=== PATIENT | male | born 1945 | race Caucasian/White ===

== ENCOUNTER 2017-11-05 11:49 | Inpatient (IN) | payer MEDICARE, OTHER ==
[~2017-11-05] VITALS: Ht 185.4 cm; Wt 111.3 kg
[2017-11-05] MEDS ORDERED: VANCOMYCIN 1GM/NS 250 ML 250 ML IV ONE (12:30)
[2017-11-05] MEDS ORDERED: PIPER-TAZ 3.375 GM 50 ML IV ONE (12:30)
[2017-11-05 13:06] LABS: BASOPHILS % 0.2 % (0.0-1.0); EOSINOPHILS # (AUTO) 0.1 (0.0-0.4); EOSINOPHILS % 0.9 % (0.0-6.0); HEMOGLOBIN 13.7 g/dL (14.0-18.0); LYMPHOCYTES # (AUTO) 0.8 (1.0-3.2); MEAN CORPUSCULAR HEMOGLOBIN 33.4 pg (28-32); MEAN CORPUSCULAR HGB CONC 34.3 g/dL (31-35); MEAN CORPUSCULAR VOLUME 97.6 fL (81-99); MONOCYTES % 7.2 % (4.4-11.3); NEUTROPHILS # (AUTO) 11.7 (2.1-6.9); NEUTROPHILS % 85.1 % (38.7-80.0); PLATELET COUNT 175 x10e3/uL (140-360); RED CELL DISTRIBUTION WIDTH 12.5 % (11.7-14.4)
[2017-11-05] MEDS ORDERED: AVODART0.5 MG PO (13:23)
[2017-11-05] MEDS ORDERED: CRESTOR40 MG PO (13:23)
[2017-11-05] MEDS ORDERED: NIACIN1000 MG PO (13:23)
[2017-11-05] MEDS ORDERED: TAMSULOSIN HCL0.4 MG PO (13:23)
[2017-11-05 13:28] LABS: ALANINE AMINOTRANSFERASE 279 IU/L (0-55); ALBUMIN 3.2 g/dL (3.5-5.0); ALBUMIN/GLOBULIN RATIO 0.8 (0.8-2.0); ALKALINE PHOSPHATASE 92 IU/L (40-150); ANION GAP 14.5 mmol/L (8-16); BLOOD UREA NITROGEN 19 mg/dL (7-26); BUN/CREATININE RATIO 20 (6-25); CALCIUM 9.2 mg/dL (8.4-10.2); CARBON DIOXIDE 26 mmol/L (22-29); CHLORIDE 101 mmol/L (98-107); CREATININE, SERUM 0.97 mg/dL (0.72-1.25); EST GLOMERULAR FILTRATION RATE > 60 ML/MIN (60-); GLUCOSE 109 mg/dL (74-118); POTASSIUM 3.5 mmol/L (3.5-5.1); SODIUM 138 mmol/L (136-145)
[2017-11-05] MEDS ORDERED: MULTI-VITAMIN1 EACH PO (13:30)
[2017-11-05] MEDS ORDERED: AZITHROMYCIN250 MG PO (13:30)
[2017-11-05] MEDS ORDERED: FISH OIL 1,0001 EAC3 (13:30)
[2017-11-05] MEDS ORDERED: [UNRECOGNIZED DRUG - OTHER] PO (13:30)
[2017-11-05] MEDS ORDERED: ASPIR 8181 MG PO (13:30)
[2017-11-05] MEDS ORDERED: BENZONATATE100 MG PO (13:30)
[2017-11-05] MEDS ORDERED: CIALIS20 MG PO (13:30)
[2017-11-05] MEDS ORDERED: UBIQUINOL100 MG PO (13:30)
[2017-11-05] MEDS ORDERED: SODIUM CHLORIDE FLUSH 10 ML SYR INJ PRN (13:45)
[2017-11-05] MEDS ORDERED: ONDANSETRON HCL INJ 2 MG/ML VIAL IV PRN (13:45)
[2017-11-05] MEDS ORDERED: ACETAMINOPHEN 325 MG TAB PO PRN (13:45)
[2017-11-05] MEDS ORDERED: VANCOMYCIN 1GM/NS 250 ML 500 ML IV SCH (17:00)
[2017-11-05] MEDS: FAMOTIDINE 20 MG/2 ML VIAL IV SCH (17:20)
[2017-11-05] MEDS: CEFEPIME HCL 2 GM VIAL IV SCH (17:20)
--- NOTE | 2017-11-05 18:45 | Consultation ---
DATE OF CONSULTATION: November 05, 2017 REASON FOR CONSULTATION: Sepsis, cellulitis of the left leg. HISTORY OF PRESENT ILLNESS: This patient is a very pleasant 72-year-old male with history of hypertension. The patient comes in with redness and swelling and fever and chills. The patient apparently Saturday he was doing his lawn in the backyard and then he spent the evening and did not feel too well. He went to have dinner. He had chills, fever, felt worse the day after. The patient's symptoms did progress. He still had redness and swelling of his left leg. The patient has had history of venous stasis dermatitis, and he is well known to Dr. Woodward. He went to see Dr. Woodward today and there was redness and swelling and bullous lesion in his leg. The patient was sent to the emergency room where I was contacted. The patient is currently lying in bed in the emergency room. PAST MEDICAL HISTORY: Hypertension. PAST SURGICAL HISTORY: Denies. ALLERGIES: NKA. SOCIAL HISTORY: He denies smoking, drug abuse or alcohol abuse. FAMILY HISTORY: Hypertension. REVIEW OF SYSTEMS: GENERAL: He is feeling fair at the present time. He had the fever and chills took place yesterday, and he still has pain, redness and swelling of his left leg. HEENT: Negative. PULMONARY: Negative. CARDIAC: Negative. negative. GI: Negative. SKIN: There is no rash anywhere else. LABORATORY DATA: White count is 13.73, hemoglobin 3.7, sodium 138, potassium 3.5, creatinine 0.97. AST 193, ALT 279. PHYSICAL EXAMINATION: VITAL SIGNS: He weighs 245 pounds. His BMI is 32.3. HEENT: Normocephalic, not icteric. NECK: Supple. CHEST: Clear bilaterally. HEART: S1 and S2. No S3, S4 or murmur. ABDOMEN: Soft. Bowel sounds present. No tenderness. EXTREMITIES: Redness and swelling affecting his leg. The redness and swelling affecting from toes all the way to his knee. There is also erythema spreading up on his ____ side. IMPRESSION: I think the patient has sepsis on admission and cellulitis of the left lower extremity with bullous formation. Will continue with vancomycin at 1.5 grams q.12 hours. Obtain a trough with the 4th dose. Will add cefepime. Recheck CBC. Recheck chem panel. Elevated liver enzymes. Will recheck. It could be from sepsis, but other possibilities need to be ruled out. Will get ultrasound of the abdomen. Will follow with you. Thank you for asking me to see this patient. Job#: [id number]
[2017-11-05 20:20] VITALS: BP 145/69
[2017-11-05 21:32] VITALS: BP 145/69
[2017-11-06] VITALS (8 sets, daily range): BP systolic 115–155; BP diastolic 59–71
[2017-11-06] MEDS ORDERED: SODIUM CHLORIDE 0.9% 250ML 250 ML ONE (01:24)
[2017-11-06] MEDS: VANCOMYCIN 1GM/NS 250 ML 500 ML IV SCH ×2 (01:43→13:45)
[2017-11-06 04:39] LABS: BASOPHILS % 0.2 % (0.0-1.0); EOSINOPHILS # (AUTO) 0.2 (0.0-0.4); EOSINOPHILS % 1.2 % (0.0-6.0); HEMATOCRIT 36.6 % (38.2-49.6); HEMOGLOBIN 12.5 g/dL (14.0-18.0); LYMPHOCYTES % 7.7 % (18.0-39.1); MEAN CORPUSCULAR HGB CONC 34.2 g/dL (31-35); MEAN CORPUSCULAR VOLUME 96.6 fL (81-99); MONOCYTES % 8.3 % (4.4-11.3); NEUTROPHILS # (AUTO) 10.2 (2.1-6.9); NEUTROPHILS % 81.8 % (38.7-80.0); PLATELET COUNT 154 x10e3/uL (140-360); RED BLOOD COUNT 3.79 x10e6/uL (4.3-5.7); RED CELL DISTRIBUTION WIDTH 12.7 % (11.7-14.4)
[2017-11-06 04:54] LABS: ANION GAP 13.4 mmol/L (8-16); BLOOD UREA NITROGEN 17 mg/dL (7-26); BUN/CREATININE RATIO 18 (6-25); CALCIUM 8.7 mg/dL (8.4-10.2); CARBON DIOXIDE 23 mmol/L (22-29); CHLORIDE 104 mmol/L (98-107); CREATININE, SERUM 0.95 mg/dL (0.72-1.25); EST GLOMERULAR FILTRATION RATE > 60 ML/MIN (60-); GLUCOSE 125 mg/dL (74-118); POTASSIUM 3.4 mmol/L (3.5-5.1); SODIUM 137 mmol/L (136-145)
[2017-11-06] MEDS: CEFEPIME HCL 2 GM VIAL IV SCH ×2 (05:35→16:35)
[2017-11-06] MEDS: FAMOTIDINE 20 MG/2 ML VIAL IV SCH ×2 (08:20→16:35)
--- NOTE | 2017-11-06 11:23 | Diagnostic Imaging Report ---
EXAM: US ABDOMEN COMPLETE DATE: 11/06/2017 12:00 AM Time stamp on exam: 0951 INDICATION: Hepatitis C COMPARISON: None TECHNIQUE: Transverse and longitudinal lemus scale and color doppler sonographic images of the upper abdomen were obtained. FINDINGS: LIVER 19.4 cm in the right midclavicular line. Increased echogenicity, normal contour, no masses. SPLEEN 12.5 cm in maximum diameter. Normal echogenicity, no masses. GALLBLADDER No stones, sludge, wall-thickening or pericholecystic fluid. Negative sonographic Kincaid's sign. BILE DUCTS No intra nor extra-hepatic biliary dilation. Common bile duct measures 0.2 cm PANCREAS: Visualized portions are normal. RIGHT KIDNEY: 11.3 cm Echogenicity: Normal Collecting System: No hydronephrosis Stones: None Cyst/Mass: None LEFT KIDNEY: 12.5 cm Echogenicity: Normal Collecting System: No hydronephrosis Stones: None Cyst/Mass: 1.5 cm anechoic cyst projecting from the upper pole. VESSELS: Aorta: Visualized portions are within normal size limits Inferior Vena Cava: Visualized portions are normal Main Portal Vein: 1.1 cm, normal size with hepatopetal flow. FREE FLUID: None IMPRESSION: Hepatomegaly with hepatic steatosis. Signed by: Dr. Farrukh Alonso M.D. on 11/06/2017 11:20 AM
[2017-11-07] VITALS (8 sets, daily range): BP systolic 126–154; BP diastolic 65–81
[2017-11-07] MEDS: VANCOMYCIN 1GM/NS 250 ML 500 ML IV SCH ×2 (01:50→14:15)
[2017-11-07] MEDS: CEFEPIME HCL 2 GM VIAL IV SCH ×2 (05:25→17:00)
[2017-11-07] MEDS: FAMOTIDINE 20 MG/2 ML VIAL IV SCH ×2 (09:09→17:00)
--- NOTE | 2017-11-07 12:36 | Progress Note ---
DATE: November 07, 2017 CARDIOLOGY PROGRESS NOTE SUBJECTIVE: Patient denies chest pain or shortness of breath. OBJECTIVE VITALS: Temperature 98 degrees, pulse 67, respiratory rate 18, blood pressure 146/65, and oxygen saturation 97% on room air. GENERAL: Awake and alert, in no acute distress. LUNGS: Clear to auscultation bilaterally. No wheezes or crackles. CARDIOVASCULAR: Normal rate. Regular rhythm. No murmur. Normal S1 and S2. ABDOMEN: Soft and nontender. EXTREMITIES: Skin changes consistent with chronic venous stasis. Left lower extremity with marked erythema and swelling as well as fluid filled bullae on the left medial surface. CARDIAC MEDICATIONS: None. LABS: None today. IMPRESSION 1. Cellulitis of the left lower extremity. 2. History of chronic venous stasis, status post ablation. 3. Hypertension. RECOMMENDATIONS: IV antibiotics per infectious disease. Obtain bilateral lower extremity arterial Dopplers to evaluate for peripheral arterial disease. Thank you for this consult. We will continue to follow. Job#: [id number] VAS
[2017-11-08] VITALS (9 sets, daily range): BP systolic 140–165; BP diastolic 67–86
[2017-11-08] MEDS: VANCOMYCIN 1GM/NS 250 ML 500 ML IV SCH ×2 (01:24→14:07)
[2017-11-08] MEDS: CEFEPIME HCL 2 GM VIAL IV SCH ×2 (05:21→16:13)
[2017-11-08] MEDS: FAMOTIDINE 20 MG/2 ML VIAL IV SCH ×2 (08:25→16:13)
[2017-11-08] MEDS ORDERED: BENZONATATE 100 MG CAP PO PRN (10:15)
--- NOTE | 2017-11-08 15:28 | Progress Note ---
DATE: November 08, 2017 CARDIOLOGY PROGRESS NOTE SUBJECTIVE: Patient denies chest pain or shortness of breath. OBJECTIVE VITALS: Temperature 97 degrees, pulse 56, respiratory rate 20, blood pressure 165/81. Oxygen saturation is 98% on room air. GENERAL: Awake and alert, in no acute distress. LUNGS: Clear to auscultation bilaterally. No wheezes or crackles. CARDIOVASCULAR: Normal rate. Regular rhythm. No murmur. Normal S1 and S2. ABDOMEN: Soft and nontender. EXTREMITIES: Skin changes consistent with chronic venous stasis. Left lower extremity with marked erythema and swelling as well as fluid-filled bullae on the left medial surface. CARDIAC MEDICATIONS 1. Fish oil 1,000 mg p.o. daily. 2. Aspirin 81 mg p.o. daily. LABS: None today. BILATERAL LOWER EXTREMITY ARTERIAL DOPPLER: Monophasic waveforms in the left lower extremity suggestive of hemodynamically significant aortoiliac disease. The proximal left posterior tibial artery appears to be occluded. IMPRESSION 1. Cellulitis of the left lower extremity. 2. History of chronic venous stasis, status post ablation. 3. Peripheral arterial disease suggested by noninvasive Doppler evaluation. 4. Hypertension. RECOMMENDATIONS: Continue current cardiac medications. Resume rosuvastatin. Add nifedipine. Monitor lower extremity cellulitis. If this does not improve through the weekend, plan for evaluation with peripheral angiogram versus CTA of the abdomen and pelvis with lower extremity runoff. Thank you for this consult. We will continue to follow. Job#: [id number]
[2017-11-08] MEDS: MELATONIN 5 MG TABLET PO SCH (21:12)
[2017-11-08] MEDS: ATORVASTATIN 40 MG TAB PO SCH (21:12)
[2017-11-09] VITALS (7 sets, daily range): BP systolic 136–158; BP diastolic 68–87
[2017-11-09] MEDS: VANCOMYCIN 1GM/NS 250 ML 250 ML IV SCH ×2 (02:11→14:45)
[2017-11-09] MEDS: CEFEPIME HCL 2 GM VIAL IV SCH ×2 (05:17→17:31)
[2017-11-09] MEDS: MULTIVITAMINS/MINERALS TAB PO SCH (08:04)
[2017-11-09] MEDS: FAMOTIDINE 20 MG/2 ML VIAL IV SCH ×2 (08:04→17:31)
[2017-11-09] MEDS: ASPIRIN 81 MG CHEW TAB PO SCH (08:04)
[2017-11-09] MEDS: NIFEDIPINE CR 30 MG TAB PO SCH (08:04)
[2017-11-09] MEDS: OMEGA 3 POLYUNSAT FATTY ACIDS 1000 MG SOFTGEL PO SCH (08:04)
[2017-11-09] MEDS: DUTASTERIDE 0.5 MG CAP PO SCH (08:04)
[2017-11-09] MEDS: TAMSULOSIN HCL 0.4 MG CAP PO SCH (08:04)
--- NOTE | 2017-11-09 10:04 | Progress Note ---
DATE: November 09, 2017 CARDIOLOGY PROGRESS NOTE Mr. Luciano's leg inflammation and swelling has improved considerably. He denies any pain. PHYSICAL EXAMINATION VITALS: Afebrile, heart rate 105, blood pressure is 108/70. CARDIOVASCULAR: Regular rhythm. No murmurs or gallops. LUNGS: Clear to auscultation bilaterally. EXTREMITIES: Severe bullous erythema and swelling of the left lower extremity. MEDICATIONS: Reviewed. ASSESSMENT: Cellulitis of the left lower extremity with severe venous insufficiency. Arterial duplex study was reviewed and reveals monophasic waveforms in the entire left lower extremity. RECOMMENDATIONS: Leg elevation, compression and intravenous antibiotics. Local wound care. CT scan of the abdomen and pelvis with runoff to bilateral lower extremities will be performed to evaluate for any peripheral arterial disease given abnormal arterial duplex. Job#: [id number] FADIA
[2017-11-09 14:08] LABS: BASOPHILS # (AUTO) 0.1 (0.0-0.1); BASOPHILS % 0.5 % (0.0-1.0); EOSINOPHILS # (AUTO) 0.2 (0.0-0.4); EOSINOPHILS % 1.9 % (0.0-6.0); HEMATOCRIT 38.4 % (38.2-49.6); HEMOGLOBIN 12.7 g/dL (14.0-18.0); LYMPHOCYTES # (AUTO) 1.4 (1.0-3.2); LYMPHOCYTES % 13.6 % (18.0-39.1); MEAN CORPUSCULAR HEMOGLOBIN 32.9 pg (28-32); MEAN CORPUSCULAR HGB CONC 33.1 g/dL (31-35); MEAN CORPUSCULAR VOLUME 99.5 fL (81-99); MONOCYTES # (AUTO) 0.7 (0.2-0.8); MONOCYTES % 6.7 % (4.4-11.3); NEUTROPHILS # (AUTO) 8.1 (2.1-6.9); NEUTROPHILS % 76.4 % (38.7-80.0); PLATELET COUNT 217 x10e3/uL (140-360); RED BLOOD COUNT 3.86 x10e6/uL (4.3-5.7); RED CELL DISTRIBUTION WIDTH 12.4 % (11.7-14.4)
[2017-11-09 14:29] LABS: ALANINE AMINOTRANSFERASE 153 IU/L (0-55); ALBUMIN 2.5 g/dL (3.5-5.0); ALBUMIN/GLOBULIN RATIO 0.6 (0.8-2.0); ALKALINE PHOSPHATASE 90 IU/L (40-150); ANION GAP 11.1 mmol/L (8-16); BLOOD UREA NITROGEN 16 mg/dL (7-26); BUN/CREATININE RATIO 16 (6-25); CALCIUM 8.9 mg/dL (8.4-10.2); CARBON DIOXIDE 28 mmol/L (22-29); CHLORIDE 106 mmol/L (98-107); CREATININE, SERUM 0.98 mg/dL (0.72-1.25); EST GLOMERULAR FILTRATION RATE > 60 ML/MIN (60-); GLUCOSE 102 mg/dL (74-118); POTASSIUM 4.1 mmol/L (3.5-5.1); SODIUM 141 mmol/L (136-145)
[2017-11-09] MEDS ORDERED: SODIUM CHLORIDE 0.9% 100 ML 100 ML ONE (16:21)
[2017-11-09] MEDS ORDERED: IOPAMIDOL 370 MG/ML 200 ML INFUS..BTL INJ ONE (16:21)
[2017-11-09] MEDS: MELATONIN 5 MG TABLET PO SCH (20:29)
[2017-11-09] MEDS: ATORVASTATIN 40 MG TAB PO SCH (20:29)
[2017-11-10] VITALS (8 sets, daily range): BP systolic 115–149; BP diastolic 58–85
[2017-11-10] MEDS: VANCOMYCIN 1GM/NS 250 ML 250 ML IV SCH (03:53)
[2017-11-10 04:35] LABS: BASOPHILS % 0.3 % (0.0-1.0); EOSINOPHILS # (AUTO) 0.2 (0.0-0.4); EOSINOPHILS % 1.7 % (0.0-6.0); HEMOGLOBIN 12.3 g/dL (14.0-18.0); LYMPHOCYTES # (AUTO) 1.5 (1.0-3.2); MEAN CORPUSCULAR HEMOGLOBIN 32.4 pg (28-32); MEAN CORPUSCULAR HGB CONC 33.2 g/dL (31-35); MEAN CORPUSCULAR VOLUME 97.4 fL (81-99); MONOCYTES # (AUTO) 0.8 (0.2-0.8); MONOCYTES % 6.9 % (4.4-11.3); NEUTROPHILS # (AUTO) 8.6 (2.1-6.9); PLATELET COUNT 219 x10e3/uL (140-360); RED CELL DISTRIBUTION WIDTH 12.3 % (11.7-14.4)
[2017-11-10 04:57] LABS: ALANINE AMINOTRANSFERASE 127 IU/L (0-55); ALBUMIN 2.4 g/dL (3.5-5.0); ALBUMIN/GLOBULIN RATIO 0.6 (0.8-2.0); ALKALINE PHOSPHATASE 82 IU/L (40-150); ANION GAP 12.8 mmol/L (8-16); BLOOD UREA NITROGEN 15 mg/dL (7-26); BUN/CREATININE RATIO 18 (6-25); CALCIUM 8.5 mg/dL (8.4-10.2); CARBON DIOXIDE 24 mmol/L (22-29); CHLORIDE 108 mmol/L (98-107); CREATININE, SERUM 0.84 mg/dL (0.72-1.25); EST GLOMERULAR FILTRATION RATE > 60 ML/MIN (60-); GLUCOSE 113 mg/dL (74-118); POTASSIUM 3.8 mmol/L (3.5-5.1); SODIUM 141 mmol/L (136-145)
[2017-11-10] MEDS: CEFEPIME HCL 2 GM VIAL IV SCH ×2 (05:19→16:45)
[2017-11-10] MEDS: FAMOTIDINE 20 MG/2 ML VIAL IV SCH ×2 (08:09→16:45)
[2017-11-10] MEDS: DUTASTERIDE 0.5 MG CAP PO SCH (08:10)
[2017-11-10] MEDS: ASPIRIN 81 MG CHEW TAB PO SCH (08:10)
[2017-11-10] MEDS: MULTIVITAMINS/MINERALS TAB PO SCH (08:10)
[2017-11-10] MEDS: NIFEDIPINE CR 30 MG TAB PO SCH (08:10)
[2017-11-10] MEDS: TAMSULOSIN HCL 0.4 MG CAP PO SCH (08:10)
[2017-11-10] MEDS: OMEGA 3 POLYUNSAT FATTY ACIDS 1000 MG SOFTGEL PO SCH (08:10)
--- NOTE | 2017-11-10 10:21 | Progress Note ---
DATE: CARDIOLOGY PROGRESS NOTE SUBJECTIVE: Mr. Luciano leg feels much better. He denies any fever or chills. PHYSICAL EXAMINATION: VITAL SIGNS: Afebrile. Heart rate 64. Blood pressure 145/85. O2 sat is 99%. CARDIOVASCULAR: Regular rhythm. No murmurs or gallops. LUNGS: Clear to auscultation bilaterally. MEDICATIONS: Reviewed. LABS: WBC count is 11,000, hemoglobin is 12.3. Kidney function is normal. CT scan of the abdomen and pelvis with runoff report is pending. Blood cultures are negative. ASSESSMENT: Cellulitis of the left lower extremity with severe venous insufficiency. RECOMMENDATIONS: Compression will be applied today. Local wound care to continue. I will await interpretation of the arterial duplex before making more recommendations and evaluation of peripheral arterial disease. Job#: [id number]
[2017-11-10] MEDS: VANCOMYCIN HCL 1.25 GM in SODIUM CHLORIDE 0.9% 250ML 300 ML IV SCH (12:14)
[2017-11-10] MEDS: ATORVASTATIN 40 MG TAB PO SCH (20:07)
[2017-11-10] MEDS: MELATONIN 5 MG TABLET PO SCH (20:07)
[2017-11-11] VITALS (7 sets, daily range): BP systolic 117–170; BP diastolic 60–79
[2017-11-11] MEDS: VANCOMYCIN HCL 1.25 GM in SODIUM CHLORIDE 0.9% 250ML 300 ML IV SCH ×2 (00:12→12:00)
[2017-11-11 04:32] LABS: BASOPHILS # (AUTO) 0.1 (0.0-0.1); BASOPHILS % 0.5 % (0.0-1.0); EOSINOPHILS # (AUTO) 0.3 (0.0-0.4); EOSINOPHILS % 1.9 % (0.0-6.0); HEMOGLOBIN 13.4 g/dL (14.0-18.0); LYMPHOCYTES # (AUTO) 1.6 (1.0-3.2); LYMPHOCYTES % 12.3 % (18.0-39.1); MEAN CORPUSCULAR HEMOGLOBIN 32.6 pg (28-32); MEAN CORPUSCULAR HGB CONC 33.5 g/dL (31-35); MEAN CORPUSCULAR VOLUME 97.3 fL (81-99); MONOCYTES # (AUTO) 0.9 (0.2-0.8); MONOCYTES % 6.6 % (4.4-11.3); NEUTROPHILS # (AUTO) 10.2 (2.1-6.9); NEUTROPHILS % 77.6 % (38.7-80.0); PLATELET COUNT 262 x10e3/uL (140-360); RED BLOOD COUNT 4.11 x10e6/uL (4.3-5.7)
[2017-11-11 04:52] LABS: ALANINE AMINOTRANSFERASE 115 IU/L (0-55); ALBUMIN 2.5 g/dL (3.5-5.0); ALBUMIN/GLOBULIN RATIO 0.6 (0.8-2.0); ALKALINE PHOSPHATASE 84 IU/L (40-150); ANION GAP 12.2 mmol/L (8-16); BLOOD UREA NITROGEN 15 mg/dL (7-26); BUN/CREATININE RATIO 18 (6-25); CALCIUM 8.8 mg/dL (8.4-10.2); CARBON DIOXIDE 24 mmol/L (22-29); CHLORIDE 107 mmol/L (98-107); CREATININE, SERUM 0.83 mg/dL (0.72-1.25); EST GLOMERULAR FILTRATION RATE > 60 ML/MIN (60-); GLUCOSE 113 mg/dL (74-118); POTASSIUM 4.2 mmol/L (3.5-5.1); SODIUM 139 mmol/L (136-145)
[2017-11-11] MEDS: CEFEPIME HCL 2 GM VIAL IV SCH ×2 (05:05→16:57)
--- NOTE | 2017-11-11 08:23 | Diagnostic Imaging Report ---
EXAMINATION: CT angiography of the abdomen, pelvis, and lower extremities. TECHNIQUE: Spiral CT images of the abdomen and pelvis and lower extremities were performed from the lung bases to the lesser trochanters after the intravenous administration of 100 cc of Isovue-370. Coronal and sagittal reformatted images were obtained. COMPARISON: None. CLINICAL HISTORY:Bilateral lower extremity cellulitis, concern for left iliac stenosis DISCUSSION: Vasculature: The abdominal aorta is nonaneurysmal. The celiac axis, superior mesenteric artery, single bilateral renal arteries, and inferior mesenteric artery are all widely patent. Iliac inflow: The bilateral common and external iliac arteries, as well as the internal iliac arteries and central visceral branches are all widely patent with mild atherosclerotic disease. No significant stenosis, dissection, or aneurysmal dilatation. Right lower extreme: Femoral-popliteal segment: The common femoral artery is widely patent. The femoral bifurcation is patent. The superficial femoral artery as well as the profunda femoris artery and proximal muscular branches are widely patent. Runoff: The below-knee popliteal artery and runoff vessels are poorly opacified. There is substantial calcified atherosclerotic plaque along what is felt to be the peroneal artery. Left lower extremity: Femoral-popliteal segment: The common femoral artery and femoral bifurcation are widely patent. The superficial femoral artery is widely patent as is the profundus femoris artery and muscular branches. The above and below-knee segments of the popliteal artery are widely patent. Runoff: The anterior tibial artery, peroneal artery, and posterior tibial arteries are widely patent with minimal calcified atherosclerotic plaque. The dorsalis is artery is visualized as a continuation of the anterior tibial artery. The lateral plantar artery is identified as the continuation of the posterior tibial artery. Variant runoff anatomy with trifurcation of the below-knee popliteal artery. ABDOMEN/PELVIS: LOWER THORAX:Unremarkable. HEPATOBILIARY: 1 cm cyst in segment 8. Otherwise no focal hepatic lesion or intrahepatic biliary ductal dilatation. Gallbladder is unremarkable. SPLEEN: Heterogeneity of attenuation reflects arterial phase of scan. PANCREAS: No focal masses or ductal dilatation. ADRENALS: 2.3 cm right adrenal nodule, average internal attenuation 42 Hounsfield units. No left adrenal nodule. KIDNEYS/URETERS: 1.2 cm exophytic cyst projecting from the upper pole of the left kidney. Bilateral nonobstructing renal calculi measuring 5 mm on the left and 4 millimeters on the right. PELVIC ORGANS/BLADDER: 2.7 cm diverticulum projecting from the right side of the urinary bladder. 4.4 cm diverticulum projecting from the right bladder trigone with a 8.7 mm calculus in its dependent portion. The prostate is enlarged with mass effect upon the bladder base and contains multiple coarse calcifications. PERITONEUM/RETROPERITONEUM: No ascites or pneumoperitoneum. LYMPH NODES: 2.2 cm left inguinal lymph node. No pelvic sidewall, retroperitoneal, or mesenteric lymphadenopathy. Mildly enlarged left external iliac lymph nodes . VESSELS: As above. GI TRACT: The large bowel shows no gross distention or wall thickening. Innumerable sigmoid diverticula without inflammatory change or wall thickening. Diverticula of lesser concentration elsewhere along the large bowel. Normal appendix. Small sliding hiatal hernia. No small bowel dilatation to suggest obstruction. BONES AND SOFT TISSUE: No osseous destructive lesions. Mild multilevel degenerative disc changes of the lumbar spine. Diffuse skin thickening and subcutaneous edema of the left lower extremity to a greater extent involving the foot and calf than the upper leg. No loculated fluid collection. IMPRESSION: Mild atherosclerotic vascular disease without abdominal aortic aneurysm or visceral branch vessel stenosis. No significant iliac inflow stenosis. Specifically, no left common or external iliac arterial stenosis is identified per clinical query. No significant femoral-popliteal stenosis. Three-vessel runoff to the left foot with mild atherosclerotic disease. Nonvisualization of the right below knee popliteal artery and runoff vessels is of uncertain significance and may relate to technical factors. Correlation with recently performed arterial Doppler is suggested. Left lower extremity diffuse cellulitis without drainable fluid collection. Reactive left inguinal and mild iliac chain lymphadenopathy. Right adrenal nodule is indeterminate and should be definitively characterized by CT or MRI of the abdomen (adrenal mass protocol). Bilateral nonobstructing renal calculi. Prostatomegaly with mass effect upon the bladder base, and associated right-sided bladder diverticula, one of which contains a calculus. Large bowel diverticulosis without evidence of diverticulitis. Signed by: Dr. Farrukh Alonso M.D. on 11/11/2017 8:20 AM
[2017-11-11] MEDS: NIFEDIPINE CR 30 MG TAB PO SCH (09:00)
[2017-11-11] MEDS: DUTASTERIDE 0.5 MG CAP PO SCH (09:00)
[2017-11-11] MEDS: OMEGA 3 POLYUNSAT FATTY ACIDS 1000 MG SOFTGEL PO SCH (09:00)
[2017-11-11] MEDS: TAMSULOSIN HCL 0.4 MG CAP PO SCH (09:00)
[2017-11-11] MEDS: ASPIRIN 81 MG CHEW TAB PO SCH (09:00)
[2017-11-11] MEDS: FAMOTIDINE 20 MG/2 ML VIAL IV SCH ×2 (09:00→16:57)
[2017-11-11] MEDS: MULTIVITAMINS/MINERALS TAB PO SCH (09:29)
[2017-11-11 17:17] LABS: INR 1.14; PROTHROMBIN TIME 13.7 seconds (11.9-14.5)
[2017-11-11] MEDS: MELATONIN 5 MG TABLET PO SCH (20:23)
[2017-11-11] MEDS: ATORVASTATIN 40 MG TAB PO SCH (20:23)
[2017-11-12] VITALS: BP 113/61
--- NOTE | 2017-11-12 00:32 | Progress Note ---
DATE: November 11, 2017 CARDIOLOGY PROGRESS NOTE SUBJECTIVE: Patient denies chest pain or shortness of breath. OBJECTIVE: VITAL SIGNS: Temperature 97.6 degrees, pulse 80, respiratory rate 20, blood pressure 170/78, oxygen saturation 98% on room air. GENERAL: Awake and alert, in no acute distress. LUNGS: Clear to auscultation bilaterally. No wheezes or crackles. CARDIOVASCULAR: Normal rate, regular rhythm. No murmur. Normal S1 and S2. ABDOMEN: Soft, nontender. EXTREMITIES: Skin changes consistent with chronic venous stasis. Left lower extremity with marked erythema and swelling as well as fluid-filled bullae on the medial surface with dressing in place. CARDIAC MEDICATIONS: 1. Atorvastatin 80 mg p.o. nightly. 2. Nifedipine 30 mg p.o. daily. 3. Fish oil 1000 mg p.o. daily. 4. Aspirin 81 mg p.o. daily. LABS: WBC 13.11, hemoglobin is 13.4, hematocrit 40, platelets 262,000. Sodium 139, potassium 4.2, chloride 107, CO2 24, BUN 15, creatinine 0.83. CTA of the abdomen and pelvis with lower extremity runoff, mild atherosclerotic vascular disease without abdominal aortic aneurysm or visceral branch vessel stenosis, no significant iliac inflow stenosis, specifically no left common or external iliac arterial stenosis identified per clinical query, no significant femoropopliteal stenosis, 3-vessel runoff to the left with mild atherosclerotic disease, nonvisualization of the right below-knee popliteal artery in vessels is of uncertain significance and may be related to technical factors. Correlation with recently performed arterial Doppler is suggested. Left lower extremity without drainable fluid collection, reactive left inguinal and mild iliac chain lymphadenopathy, right adrenal nodule is indeterminate and should be definitively characterized by CT or MRI of the abdomen, bilateral nonobstructing renal calculi, prostatomegaly with mass effect upon the bladder base and associated with right-sided bladder diverticula, one of which contains a calculus, large-bowel diverticulosis without evidence of diverticulitis. IMPRESSION: 1. Cellulitis of the left lower extremity. 2. Venous insufficiency, status post ablation. 3. Hypertension. RECOMMENDATIONS: Continue current cardiac medications. Patient's blood pressure is labile. It is consistently elevated. We will increase nifedipine. There was no evidence of peripheral arterial disease by CTA of the abdomen and pelvis with lower extremity runoff. No further evaluation is indicated at this time. Continue wound care, IV antibiotics per infectious disease. Thank you for this consult. We will continue to follow. Job#: [id number]
[2017-11-12] MEDS ORDERED: SODIUM CHLORIDE 0.9% 250ML 250 ML ONE (00:55)
[2017-11-12] MEDS: VANCOMYCIN HCL 1.25 GM in SODIUM CHLORIDE 0.9% 250ML 300 ML IV SCH ×2 (01:01→12:44)
--- NOTE | 2017-11-12 02:20 | Diagnostic Imaging Report ---
EXAMINATION: CHEST XRAY LINE PLACEMENT INDICATION: Line placement COMPARISON: None FINDINGS: TUBES and LINES: Left upper extremity PICC line is visualized with distal tip at the level of the superior segment of the SVC LUNGS: Lungs are well inflated. Lungs are clear. There is no evidence of pneumonia or pulmonary edema. PLEURA: No pleural effusion or pneumothorax. HEART AND MEDIASTINUM: The cardiomediastinal silhouette is unremarkable. BONES AND SOFT TISSUES: No acute osseous lesion. Soft tissues are unremarkable. UPPER ABDOMEN: No free air under the diaphragm. IMPRESSION: No acute thoracic abnormality. Signed by: Dr. Devang Vicente M.D. on 11/12/2017 2:16 AM
[2017-11-12 04:00] VITALS: BP 126/60
[2017-11-12] MEDS: CEFEPIME HCL 2 GM VIAL IV SCH (05:29)
[2017-11-12 08:00] VITALS: BP 126/69
[2017-11-12] MEDS: MULTIVITAMINS/MINERALS TAB PO SCH (08:29)
[2017-11-12] MEDS: TAMSULOSIN HCL 0.4 MG CAP PO SCH (08:29)
[2017-11-12] MEDS: DUTASTERIDE 0.5 MG CAP PO SCH (08:29)
[2017-11-12] MEDS: NIFEDIPINE CR 30 MG TAB PO SCH (08:29)
[2017-11-12] MEDS: FAMOTIDINE 20 MG/2 ML VIAL IV SCH ×2 (08:29→16:13)
[2017-11-12] MEDS: ASPIRIN 81 MG CHEW TAB PO SCH (08:29)
[2017-11-12] MEDS: OMEGA 3 POLYUNSAT FATTY ACIDS 1000 MG SOFTGEL PO SCH (08:29)
--- NOTE | 2017-11-12 11:34 | Progress Note ---
DATE: November 12, 2017 CARDIOLOGY PROGRESS NOTE SUBJECTIVE: Patient denies chest pain or shortness of breath. OBJECTIVE VITAL SIGNS: Temperature 97.7 degrees, pulse 66, respiratory rate 18, blood pressure 126/69, and oxygen saturation 96% on room air. GENERAL: Awake and alert, no acute distress. LUNGS: Clear to auscultation bilaterally. No wheezes or crackles. CARDIOVASCULAR: Normal rate, regular rhythm. No murmur. Normal S1 and S2. ABDOMEN: Soft and nontender. EXTREMITIES: Skin changes consistent with chronic venous stasis left lower extremity with erythema and swelling as well as fluid-filled bullae on the medial surface with compression wrapping in place. CARDIAC MEDICATIONS 1. Nifedipine 30 mg p.o. daily. 2. Fish oil 1000 mg p.o. daily. 3. Aspirin 81 mg p.o. daily. 4. Atorvastatin 80 mg p.o. nightly. LABS: None today. IMPRESSION 1. Cellulitis of the left lower extremity. 2. Venous insufficiency, status post ablation. 3. Hypertension. RECOMMENDATIONS: Continue current cardiac medications. Patient's blood pressure has been labile, but it is well controlled today. We will continue to monitor. There was no evidence of peripheral arterial disease by CTA of the abdomen and pelvis with lower extremity runoff. No further evaluation is indicated at this time. Continue wound care. Antibiotics per infectious disease. Thank you for this consult. We will continue to follow. Job#: [id number]
[2017-11-12 12:00] VITALS: BP 128/80
[2017-11-12 16:00] VITALS: BP 128/80
[2017-11-12] MEDS: ATORVASTATIN 40 MG TAB PO SCH (16:13)
[2017-11-12 20:00] VITALS: BP 123/55
[2017-11-12] MEDS: MELATONIN 5 MG TABLET PO SCH (21:17)
[2017-11-13] VITALS (7 sets, daily range): BP systolic 121–167; BP diastolic 60–81
[2017-11-13] MEDS: VANCOMYCIN HCL 1.25 GM in SODIUM CHLORIDE 0.9% 250ML 300 ML IV SCH ×2 (00:48→12:40)
[2017-11-13] MEDS: MULTIVITAMINS/MINERALS TAB PO SCH (09:41)
[2017-11-13] MEDS: NIFEDIPINE CR 30 MG TAB PO SCH (09:41)
[2017-11-13] MEDS: OMEGA 3 POLYUNSAT FATTY ACIDS 1000 MG SOFTGEL PO SCH (09:41)
[2017-11-13] MEDS: FAMOTIDINE 20 MG/2 ML VIAL IV SCH ×2 (09:41→17:24)
[2017-11-13] MEDS: ASPIRIN 81 MG CHEW TAB PO SCH (09:41)
[2017-11-13] MEDS: DUTASTERIDE 0.5 MG CAP PO SCH (09:41)
[2017-11-13] MEDS: TAMSULOSIN HCL 0.4 MG CAP PO SCH (09:41)
[2017-11-13] MEDS: CEFEPIME HCL 2 GM VIAL IV SCH (13:23)
--- NOTE | 2017-11-13 15:50 | Progress Note ---
DATE: November 13, 2017 CARDIOLOGY PROGRESS NOTE SUBJECTIVE: Patient denies chest pain or shortness of breath. He reports he may be going home with home health and antibiotics instead. OBJECTIVE VITAL SIGNS: Temperature 97.1 degrees, pulse 71, respiratory rate 18, blood pressure 131/74, and oxygen saturation 99% on room air. GENERAL: Awake and alert, no acute distress. LUNGS: Clear to auscultation bilaterally. No wheezes or crackles. CARDIOVASCULAR: Normal rate, regular rhythm. No murmur. Normal S1 and S2. ABDOMEN: Soft and nontender. EXTREMITIES: Skin changes consistent with chronic venous stasis with left lower extremity erythema and swelling as well as fluid-filled bullae on the medial surface with compression wrapping in place. CARDIAC MEDICATIONS 1. Nifedipine 30 mg p.o. daily. 2. Fish oil 1,000 mg p.o. daily. 3. Aspirin 81 mg p.o. daily. 4. Atorvastatin 80 mg p.o. nightly. LABS: None today. IMPRESSION 1. Cellulitis of the left lower extremity. 2. Venous insufficiency, status post ablation. 3. Hypertension. RECOMMENDATIONS: Continue current cardiac medications. Patient's blood pressure is generally adequately controlled. We will continue to monitor. There was no evidence of peripheral arterial disease on CTA of the abdomen and pelvis with lower extremity runoff. No further evaluation is indicated at this time. Continue wound care. Antibiotics per infectious disease. Thank you for this consult. We will continue to follow. Job#: [id number]
[2017-11-13] MEDS: ATORVASTATIN 40 MG TAB PO SCH (20:56)
[2017-11-13] MEDS: MELATONIN 5 MG TABLET PO SCH (20:56)
[2017-11-14] VITALS: BP 122/65
[2017-11-14] MEDS: VANCOMYCIN HCL 1.25 GM in SODIUM CHLORIDE 0.9% 250ML 300 ML IV SCH ×2 (00:45→12:15)
[2017-11-14] MEDS: CEFEPIME HCL 2 GM VIAL IV SCH ×2 (01:00→13:31)
[2017-11-14 04:05] VITALS: BP 119/63
[2017-11-14 08:00] VITALS: BP 125/69
[2017-11-14] MEDS: OMEGA 3 POLYUNSAT FATTY ACIDS 1000 MG SOFTGEL PO SCH (09:25)
[2017-11-14] MEDS: TAMSULOSIN HCL 0.4 MG CAP PO SCH (09:25)
[2017-11-14] MEDS: DUTASTERIDE 0.5 MG CAP PO SCH (09:25)
[2017-11-14] MEDS: ASPIRIN 81 MG CHEW TAB PO SCH (09:25)
[2017-11-14] MEDS: MULTIVITAMINS/MINERALS TAB PO SCH (09:25)
[2017-11-14] MEDS: FAMOTIDINE 20 MG/2 ML VIAL IV SCH ×2 (09:25→16:32)
[2017-11-14] MEDS: NIFEDIPINE CR 30 MG TAB PO SCH (09:26)
[2017-11-14 12:00] VITALS: BP 144/74
--- NOTE | 2017-11-14 12:15 | Progress Note ---
DATE: November 14, 2017 CARDIOLOGY PROGRESS NOTE SUBJECTIVE: No major events overnight. OBJECTIVE VITAL SIGNS: Temperature 97.9, pulse 70, respiratory rate 21, blood pressure 125/69, and satting 97% on room air. GENERAL: Well-developed, well-nourished white man with no acute distress. CARDIOVASCULAR: Regular rate and rhythm. No murmurs, rubs, or gallops. Palpable carotid pulses. Palpable radial pulses. EXTREMITIES: 3+ bilateral lower extremity edema. Left lower extremity with significant redness and erythema with some bullae in the anterior portion. Demarcation is improving. LUNGS: Clear to auscultation bilaterally. No respiratory distress. ABDOMEN: Soft, nontender, and nondistended. No masses. NEURO AND PSYCH: Patient is alert and oriented to person, place, and time. Normal affect. CARDIAC MEDICATIONS: Reviewed. LABORATORY DATA: Reviewed. ASSESSMENT AND PLAN 1. Cellulitis of the left lower extremity. 2. Venous insufficiency, status post ablation. 3. Hypertension. RECOMMENDATION: Continue current cardiac medications. No evidence of peripheral arterial disease on CTA. No further evaluations indicated at this time. Continue wound care and antibiotics per primary team. Patient is okay to be discharged from a cardiovascular standpoint. Thank you for this consult. Job#: [id number] IW[facility]
[2017-11-14 15:21] VITALS: BP 144/74
[2017-11-14 16:00] VITALS: BP 139/73
== END 2017-11-14 18:44 | disposition home or self-care (01) | DRG 872 ==
LOC: ER 11:49 → ERHOLD 14:29 → MED/SURG2 20:13
PROC: 02HV33Z Insertion of Infusion Device into Superior Vena Cava, Percutaneous Approach (ICD-10-PCS; principal; 2017-11-12)
DX: A41.89 Other specified sepsis (principal); L03.116 Cellulitis of left lower limb; E11.65 Type 2 diabetes mellitus with hyperglycemia; I73.9 Peripheral vascular disease, unspecified; R59.9 Enlarged lymph nodes, unspecified; I10 Essential (primary) hypertension; I87.8 Other specified disorders of veins; E11.51 Type 2 diabetes mellitus with diabetic peripheral angiopathy without gangrene; Z79.4 Long term (current) use of insulin; R16.0 Hepatomegaly, not elsewhere classified; I87.2 Venous insufficiency (chronic) (peripheral); R23.8 Other skin changes
CPT/HCPCS: 36415; 36569; 71045; 75635; 76700; 80048; 80053; 80202; 83880; 85025; 85610; 87040; 87071; 87205; 93925; 99284; J0692; J2543; J3370; J7050; Q9967

== ENCOUNTER 2017-11-19 13:52 | Outpatient (RCR) | payer OTHER ==
[~2017-11-19 13:52] MED LIST: ASPIR 8181 MG PO; AVODART0.5 MG PO; AZITHROMYCIN250 MG PO; BENZONATATE100 MG PO; CIALIS20 MG PO; CRESTOR40 MG PO; FISH OIL 1,0001 EAC3; MULTI-VITAMIN1 EACH PO; NIACIN1000 MG PO; TAMSULOSIN HCL0.4 MG PO; UBIQUINOL100 MG PO; [UNRECOGNIZED DRUG - OTHER] PO
[2017-11-19] MEDS ORDERED: MINERAL OIL/PETROLAT/GLYCERI 6OZ BTL ONE (14:58)
[2017-11-19] MEDS ORDERED: FLUOCINONIDE 0.05% 1 EA/15 GM TUBE ONE (14:58)
== END 2017-12-01 ==
LOC: WCC 13:52
PROVIDERS: ATTEND Family Medicine Adult Medicine
DX: I87.332 Chronic venous hypertension (idiopathic) with ulcer and inflammation of left lower extremity (principal); A41.9 Sepsis, unspecified organism; L97.829 Non-pressure chronic ulcer of other part of left lower leg with unspecified severity; L03.116 Cellulitis of left lower limb; I83.12 Varicose veins of left lower extremity with inflammation; I73.9 Peripheral vascular disease, unspecified; I87.2 Venous insufficiency (chronic) (peripheral); R60.0 Localized edema; B96.89 Other specified bacterial agents as the cause of diseases classified elsewhere; E78.00 Pure hypercholesterolemia, unspecified